=== PATIENT | female | born 1950 | race Caucasian/White ===

== ENCOUNTER 2017-04-04 15:46 | Inpatient (IN) | payer OTHER ==
[~2017-04-04] VITALS: Ht 167.6 cm; Wt 94.5 kg
[2017-04-04] MEDS ORDERED: PREDNISONE20 MG PO (17:05)
[2017-04-04] MEDS ORDERED: ATORVASTATIN CA20 MG PO (17:05)
[2017-04-04] MEDS ORDERED: CYCLOBENZAPRINE10 MG PO (17:06)
[2017-04-04] MEDS ORDERED: JANUMET XR 50-1 EAC1 PO (17:06)
[2017-04-04] MEDS ORDERED: SERTRALINE HCL50 MG PO (17:06)
[2017-04-04] MEDS ORDERED: PROMETHAZINE HC25 M1 PO (17:07)
[2017-04-04] MEDS ORDERED: LYRICA150 MG PO (17:07)
[2017-04-04] MEDS ORDERED: ZESTORETIC 20-1 EAC1 PO (17:08)
[2017-04-04] MEDS ORDERED: OXYCODONE-APAP1 EAC6 PO (17:09)
[2017-04-04 17:12] LABS: HEMATOCRIT 37.8 % (36.0-46.0); MCH 30.3 PG (29.0-34.0); MCHC 33.3 G/DL (30.0-36.0); MCV 90.9 FL (83-99); MEAN PLAT.VOLUME 10.8 uM^3 (9.5-12.4); PLATELET COUNT 233 K/uL (156-360); RBC DIS.WIDTH-CV 12.6 % (11.8-14.6); RED BLOOD COUNT 4.16 M/uL (3.80-5.20); WHITE BLOOD COUNT 12.9 K/uL (4.1-10.2)
[2017-04-04 17:24] LABS: CHLORIDE 99 mEq/L (99-109); POTASSIUM 4.1 mEq/L (3.7-5.4); SODIUM 137 mEq/L (136-147)
[2017-04-04 17:25] LABS: GLUCOSE 119 mg/dL (70-99)
[2017-04-04 17:27] LABS: ANION GAP 19 MEQ/L (2-14)
[2017-04-04 17:29] LABS: GFR ESTIMATE (CALCULATED) 7 mL/min/
[2017-04-04 17:30] LABS: UREA NITROGEN (BUN) 45 mg/dL (9-23)
[2017-04-04 17:33] LABS: ALKALINE PHOSPHATASE 46 IU/L (3-129)
[2017-04-04 17:36] LABS: DIRECT BILIRUBIN 0.4 mg/dL (0.0-0.3)
[2017-04-04 18:04] LABS: CREATINE KINASE 82 IU/L (1-294)
[2017-04-04 18:22] LABS: BASOPHIL COUNT 0.1 K/uL (0-0.1); EOSINOPHIL (%) 1.4 % (0-5); EOSINOPHIL COUNT 0.2 K/uL (0-0.3); IMMATURE GRANULOCYTE (%) 0.4 % (0.0-0.7); IMMATURE GRANULOCYTE COUNT 0.1 K/uL; INSTRUMENT ABS NEUTROPHIL CT 8.6 K/uL; LYMPHOCYTE COUNT 2.7 K/uL (1.0-2.8); NEUTROPHIL (%) 68.6 % (45-76); NEUTROPHIL COUNT 8.6 K/uL (1.8-6.4)
[2017-04-04] MEDS ORDERED: LITE COAT ASPI325 M1 PO (18:35)
[2017-04-04] MEDS ORDERED: BIOTIN5 M1 PO (18:36)
[2017-04-04] MEDS ORDERED: TURMERIC500 M2 PO (18:36)
[2017-04-04] MEDS ORDERED: VITAMIN D31000 UNI2 PO (18:36)
[2017-04-04 19:44] LABS: Estimated Average Glucose 143 mg/dL (70-123); HEMOGLOBIN A1c (GLYCOHEMOGLOB) 6.6 % HGB (Below 5.7)
[2017-04-04 22:15] VITALS: BP 105/55
[2017-04-04 22:42] LABS: POINT-OF-CARE METER ID UU14314084
[2017-04-05 00:30] VITALS: BP 123/58
[2017-04-05 03:53] LABS: ADD MIUA? YES; BILIRUBIN NEGATIVE; BLOOD NEGATIVE; COLOR YELLOW ((YELLOW)); GLUCOSE (STRIP) NEGATIVE; KETONES NEGATIVE; LEUKOCYTES TRACE; NITRITE NEGATIVE; PROTEIN (STRIP) NEGATIVE; SPECIFIC GRAVITY 1.006 (1.000-1.030); UROBILINOGEN 0.2 MG/DL (0.2-1.0)
[2017-04-05 03:59] LABS: BACTERIA 2+ /HPF; EPITHELIAL CELLS RARE /HPF; HYALINE CASTS 0-5 /LPF; MUCUS TRACE /LPF; RED BLOOD CELLS 0-5 /HPF (0-5); UCUL ADDED? YES
[2017-04-05 04:26] VITALS: BP 120/55
[2017-04-05 07:45] VITALS: BP 127/60
[2017-04-05 07:47] LABS: ALKALINE PHOSPHATASE 36 IU/L (3-129); ANION GAP 16 MEQ/L (2-14); CHLORIDE 106 MEQ/L (99-109); GFR ESTIMATE (CALCULATED) 7 mL/min/; GLUCOSE 108 mg/dL (70-99); SAMPLE HEMOLYSIS CHECK 0; SAMPLE ICTERIC CHECK 0; SAMPLE LIPEMIA CHECK 0; SODIUM 139 MEQ/L (136-147); TOTAL BILIRUBIN 0.7 MG/DL (0.0-1.0); UREA NITROGEN (BUN) 47 mg/dL (9-23)
[2017-04-05 07:51] LABS: HEMATOCRIT 33.9 % (36.0-46.0); MCH 29.9 PG (29.0-34.0); MCV 90.4 FL (83-99); PLATELET COUNT 188 K/uL (156-360); RBC DIS.WIDTH-CV 12.7 % (11.8-14.6); RBC DIS.WIDTH-SD 42.5 % (39-53); RED BLOOD COUNT 3.75 M/uL (3.80-5.20)
[2017-04-05 07:56] LABS: POTASSIUM 5.1 MEQ/L (3.7-5.4)
[2017-04-05 09:03] LABS: POINT-OF-CARE METER ID UU14208750
[2017-04-05 16:14] VITALS: BP 117/59
[2017-04-06 00:10] VITALS: BP 109/58
[2017-04-06 07:05] LABS: ANION GAP 13 MEQ/L (2-14); CHLORIDE 112 MEQ/L (99-109); GFR ESTIMATE (CALCULATED) 17 mL/min/; GLUCOSE 112 mg/dL (70-99); MAGNESIUM 1.5 mg/dl (1.3-2.7); POTASSIUM 5.1 MEQ/L (3.7-5.4); SAMPLE HEMOLYSIS CHECK 2; SAMPLE ICTERIC CHECK 0; SAMPLE LIPEMIA CHECK 0; SODIUM 144 MEQ/L (136-147); UREA NITROGEN (BUN) 34 mg/dL (9-23)
[2017-04-06 07:50] VITALS: BP 117/56
[2017-04-06 16:02] VITALS: BP 132/68
[2017-04-06 23:32] VITALS: BP 138/73
[2017-04-07 07:30] VITALS: BP 144/71
[2017-04-07 07:34] LABS: ANION GAP 8 MEQ/L (2-14); CHLORIDE 116 MEQ/L (99-109); GLUCOSE 120 mg/dL (70-99); SAMPLE HEMOLYSIS CHECK 0; SAMPLE ICTERIC CHECK 0; SAMPLE LIPEMIA CHECK 0; SODIUM 145 MEQ/L (136-147); UREA NITROGEN (BUN) 19 mg/dL (9-23)
[2017-04-07 07:42] LABS: GFR ESTIMATE (CALCULATED) 32 mL/min/
[2017-04-07 15:33] VITALS: BP 150/90
[2017-04-07 21:56] LABS: POINT-OF-CARE METER ID UU14162508
[2017-04-08 00:23] VITALS: BP 139/74
[2017-04-08 06:52] LABS: ANION GAP 11 MEQ/L (2-14); CHLORIDE 114 MEQ/L (99-109); GFR ESTIMATE (CALCULATED) 48 mL/min/; GLUCOSE 127 mg/dL (70-99); POTASSIUM 3.5 MEQ/L (3.7-5.4); SAMPLE HEMOLYSIS CHECK 0; SAMPLE ICTERIC CHECK 0; SAMPLE LIPEMIA CHECK 0; SODIUM 143 MEQ/L (136-147); UREA NITROGEN (BUN) 13 mg/dL (9-23)
== END 2017-04-08 08:55 | disposition home or self-care (01) | DRG 683 ==
LOC: EME 15:46 → EDOF 18:18 → 2EAST 18:18 → ENRESERV 18:22 → 2EAST 20:35
PROVIDERS: Family Medicine; Physician Assistant
DX: N17.9 Acute kidney failure, unspecified (principal); E86.0 Dehydration; E11.9 Type 2 diabetes mellitus without complications; E87.2 Acidosis; F32.9 Major depressive disorder, single episode, unspecified; G89.4 Chronic pain syndrome; I10 Essential (primary) hypertension; K52.9 Noninfective gastroenteritis and colitis, unspecified; M79.7 Fibromyalgia; E78.5 Hyperlipidemia, unspecified; M13.80 Other specified arthritis, unspecified site; Z90.710 Acquired absence of both cervix and uterus; Z79.4 Long term (current) use of insulin; R13.10 Dysphagia, unspecified; E66.3 Overweight; Z68.33 Body mass index [BMI] 33.0-33.9, adult; Z79.82 Long term (current) use of aspirin
CPT/HCPCS: 74176; 80048; 80053; 80076; 81003; 82550; 82948; 83036; 83605; 83735; 85025; 85027; 87086; 99281; 99285; J1815; J2405; J7030; S0028